=== PATIENT | male | born 1985 | race African-American/Black ===

== ENCOUNTER 2017-10-05 00:17 | Emergency (ER) | payer OTHER ==
[~2017-10-05] VITALS: Ht 188 cm; Wt 140.0 kg
[~2017-10-05 00:17] MED LIST: MOBI15TA PO; TYLETAB34 PO
[2017-10-05 00:27] VITALS: BP 181/106; PULSE 87; RESP 16; TEMP 99.3; O2SAT 99
[2017-10-05] MEDS ORDERED: IBUPROFEN 600 MG TAB PO ONE (01:15)
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
== END 2017-10-05 02:18 | disposition home or self-care (01) ==
LOC: NEPC 00:17
DX: S09.90XA Unspecified injury of head, initial encounter (principal); V43.52XA Car driver injured in collision with other type car in traffic accident, initial encounter; Y92.410 Unspecified street and highway as the place of occurrence of the external cause
CPT/HCPCS: 70450